=== PATIENT | female | born 1985 | race African-American/Black ===

== ENCOUNTER 2017-11-28 22:57 | Emergency (ER) | payer MEDICAID ==
[~2017-11-28] VITALS: Ht 157.5 cm; Wt 87.2 kg
[2017-11-29] MEDS ORDERED: KETOROLAC 60MG/2ML VIAL IM ONE (06:30)
[2017-11-29 07:20] VITALS: BP 126/73
== END 2017-11-29 07:28 | disposition home or self-care (01) ==
LOC: ER 22:57
DX: S00.11XA Contusion of right eyelid and periocular area, initial encounter (principal); S40.022A Contusion of left upper arm, initial encounter; R07.0 Pain in throat; M54.9 Dorsalgia, unspecified; R09.89 Other specified symptoms and signs involving the circulatory and respiratory systems; Y04.2XXA Assault by strike against or bumped into by another person, initial encounter; Y93.89 Activity, other specified; Y92.9 Unspecified place or not applicable; I10 Essential (primary) hypertension; F12.920 Cannabis use, unspecified with intoxication, uncomplicated; Z88.0 Allergy status to penicillin; Z88.5 Allergy status to narcotic agent; Z87.891 Personal history of nicotine dependence
CPT/HCPCS: 96372; 99283; J1885